=== PATIENT | female | born 1990 | race Caucasian/White ===

== ENCOUNTER → 2019-01-08 15:44 | Outpatient (CLI) | payer OTHER, SELFPAY ==
[2019-01-08 16:51] LABS: Add Manual Diff / Slide Review NO; Basophils Absolute Auto 0 /uL (0-100); Basophils Percent Auto 0.4 % (0-2); Eosinophils Absolute Auto 100 /uL (0-450); Hematocrit 41.3 % (36-46); Hemoglobin 13.9 g/dL (12.0-16.0); Lymphocytes Absolute Auto 2000 /uL (1100-4500); Lymphocytes Percent Auto 19.3 % (25-40); Mean Corpuscular HGB Conc 33.7 % (30-36); Mean Corpuscular Hemoglobin 31.2 PG (26-34); Mean Corpuscular Volume 92.5 fL (80-100); Monocytes Absolute Auto 500 /uL (0-900); Monocytes Percent Auto 4.4 % (3-14); Neutrophils Absolute Auto 7700 /uL (1500-7000); Neutrophils Percent Auto 74.9 % (50-75); Platelet Count 230 X10^3/uL (150-400); Red Blood Cell Count 4.47 X10^6/uL (4.0-5.2); Red Cell Distribution Width 13.3 % (11.6-14.8); White Blood Cell Count 10.3 X10^3/uL (4.5-11.0)
[2019-01-08 16:59] LABS: Appearance Urine UA CLEAR; Bilirubin Urine UA NEGATIVE (NEGATIVE); Color Urine UA YELLOW; Glucose Urine UA NEGATIVE (Negative); Ketones Urine UA NEGATIVE (NEGATIVE); Leukocyte Esterase Urine UA NEGATIVE (NEGATIVE); Nitrite Urine UA NEGATIVE (Negative); Occult Blood Urine UA NEGATIVE (Negative); Protein Urine UA NEGATIVE (Negative); Specific Gravity Urine UA <=1.005 (1.000-1.035); Urobilinogen Urine UA 0.2 E.U./dL (0.2); pH Urine UA 6.5 (4.5-8.0)
[2019-01-08 17:41] LABS: Hepatitis B Surface Antigen NEGATIVE s/c (NEGATIVE); Rubella Antibody IgG 10.7 IU/mL (>15)
[2019-01-08 17:58] LABS: HIV 1 and 2 Antibody NEGATIVE (NEGATIVE); Hep C Virus Ab w/Reflex Quant NEGATIVE s/c (NEGATIVE)
[2019-01-10 14:21] LABS: RPR Screen Nonreactive (Nonreactive)
== END ==
PROVIDERS: PCP Family Medicine; Visit Provider Family Medicine
DX: Z34.01 Encounter for supervision of normal first pregnancy, first trimester (principal)
CPT/HCPCS: 36415; 80055; 81003; 86703; 86787; 86803; 86850; 86900; 86901; 87086

== ENCOUNTER → 2019-01-16 09:32 | Outpatient (CLI) | payer OTHER, SELFPAY ==
[2019-01-16 11:47] LABS: HCG Quantitative /Beta subunit 170800 mIU/mL
== END ==
PROVIDERS: PCP Family Medicine; Visit Provider Family Medicine
DX: Z34.81 Encounter for supervision of other normal pregnancy, first trimester (principal); Z3A.08 8 weeks gestation of pregnancy
CPT/HCPCS: 36415; 84702

== ENCOUNTER → 2019-01-18 08:14 | Outpatient (CLI) | payer OTHER, SELFPAY ==
[2019-01-18 10:15] LABS: HCG Quantitative /Beta subunit 163030 mIU/mL
== END ==
PROVIDERS: PCP Family Medicine; Visit Provider Family Medicine
DX: Z34.81 Encounter for supervision of other normal pregnancy, first trimester (principal); Z3A.08 8 weeks gestation of pregnancy
CPT/HCPCS: 36415; 84702

== ENCOUNTER 2019-01-22 11:03 | Day surgery (SDC) | payer OTHER, SELFPAY ==
[2019-01-21 08:15] VITALS: BMI 21.4
[2019-01-22] VITALS (9 sets, daily range): BP systolic 99–135; BP diastolic 52–85; PULSE 61–108; RESP 12–16; TEMP 36.4–36.8; O2SAT 95–100; BMI 21.4
--- NOTE | 2019-01-22 | PATH_ITS ---
[facility] Accession Number: [id number] . 01 Material submitted: . PRODUCTS OF CONCEPTION . 01 Clinical history: . BELIEVES MOST TISSUE IS IN THE #2 SPECIMEN . 02 Diagnosis: Products of Conception: Products of conception identified. Chromosomal analysis pending; results will be reported as an addendum. MRV/01/24/2019 . 02 Electronically signed: . Amelie Pablo MD, Pathologist NPI- [id number] . 01 Gross description: . Received in formalin, labeled products of conception, tissue sent for chromosomal analysis, are multiple fragments of magaña-felder and red-brown spongy and membranous tissue (9.5 x 3.5 x 2.2 cm in aggregate). No tissue is identified. 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 Note: Per the requisition, this is a split sample. ([id number]) /MRV . 02 Pathologist provided ICD-10: O02.1 . 02 CPT . 913085 Performed at: 01 [facility] [address], [place], [place] [id number] MD Paddy Carrasquillo MD Phone: [phone] Performed at: 02 [facility] [address] [place], [place] [id number] MD Hannah Chamorro MD Phone: [phone]
--- NOTE | 2019-01-22 11:06 | DI.US.S_ITS ---
PROCEDURE: US OB <= 14 WEEKS FETUS INDICATIONS: Miscarriage/Check prior to D C sched 01/22 @ 1345 OUTSIDE/PRIOR DATING DATA: Last menstrual period (LMP): 11/20/18. LMP-based estimated date of delivery (JANUARY): 08/27/19. First dating scan (date and location): 01/22/19, this study. Estimated date of delivery (JANUARY) from first dating scan: 09/02/19, plus or -5 days. TECHNIQUE: Real-time scanning was performed of the fetus and maternal pelvic organs, with image documentation. Endovaginal scanning was also performed to better visualize the fetus and maternal ovaries. COMPARISON: None. FINDINGS: Embryo: [place]-rump length of 1.7 cm correlates with a gestational age of 8 weeks 1 day but there is no heart rate observed. Measurement variability in dating: +/- 4 weeks by LMP, +/- 7 days by mean sac diameter (use before 6 weeks gestation if crown-rump length not able to be measured), +/- 5 days by crown-rump length (up to 8 weeks 6 days gestation), +/- 7 days by crown-rump length (up to 13 weeks 6 days gestation). Maternal organs: Ovaries are normal in appearance except for identification of a 2.6 cm right ovarian cyst. Limited images through the kidneys demonstrate no hydronephrosis. IMPRESSION: demise. 8 week 1 day gestational age by crown-rump length. No cardiac activity. 2.6 cm right ovarian cyst incidentally noted. Dictated by: Luis Antonio Ko M.D. on 01/22/2019 at 12:52 Approved by: Luis Antonio Ko M.D. on 01/22/2019 at 12:54
[2019-01-22] MEDS: LACTATED RINGERS 1,000 ML 42 ML IV (12:54)
--- NOTE | 2019-01-22 13:32 | PM.PREOP ---
Pre-operative Note Interval Note History & Physical reviewed/Exam performed by Physician: Yes Changes to H&P: No
--- NOTE | 2019-01-22 13:33 | PM.HP.1 ---
History of Present Illness Date Patient Seen: 01/22/19 Time Patient Seen: 13:33 Chief complaint: [id number] Narrative: Patient is a 28-year-old 1 para 0 with a missed at 8 weeks Patient History Medical History (Updated 01/22/19 @ 13:35 by Iwona Ledesma MD) Asthma (Acute) Kidney infection (Acute ~2003) Migraines (Acute) Family History Brother Age: 22 Lactose intolerance Grandfather Cancer Grandmother Age: 69 Diabetes mellitus Heart disease Hypertension Lupus Fibromyalgia Mother Age: 51 Hypertension Anemia IBS (irritable bowel syndrome) Lupus Grandmother Age: 93 Hypertension Sister Age: 8 Lactose intolerance Social History household members: spouse Smoking Status: Never smoker alcohol intake: current Family & Social History Social History: household members spouse Tobacco & Substance use: Smoking Status Never smoker alcohol intake current Substance Use Type does not use Meds Home Medications Medication Instructions Recorded Confirmed Type 1 tab PO DAILY 01/08/19 01/08/19 History vitamin,calcium,uxipxhfi-xqzp-bomxy acid tablet Allergies Allergy/AdvReac Type Severity Reaction Status Date / Time No Known Drug Allergies Allergy Unverified 01/08/19 15:48 Exam Vital Signs (past 8 hours): - 01/22/19 12:42 Temperature 98.3 F Pulse Rate 66 Respiratory Rate 16 Blood Pressure 114/76 Pulse Oximetry 100 Oxygen Delivery Method Room Air Narrative Exam Narrative: HEENT: No thyromegaly, no anterior cervical or supraclavicular lymphadenopathy. Lungs:Clear to auscultation bilaterally, no wheezes. Cardiovascular: Regular rate and rhythm, no murmurs, rubs, or gallops Abdomen: No scars. No hepatosplenomegaly. No masses palpable. External genitalia: Normal Vagina: Normal Cervix: Normal Bimanual exam: 8 Week size uterus. Mobile. Rectal: No masses Assessment & Plan (1) Missed with demise before 20 completed weeks of gestation: Current visit: Yes Status: Acute Assessment & Plan narrative: Assessment: 28-year-old 1 para 0 with a missed at 8 weeks Plan: Suction D&C The risks, benefits, and alternatives to the procedure were explained to the patient. The risks including bleeding, infection, and uterine perforation. She understands these risks and agrees to proceed. A full PAR-Q was held and consent form was signed.
--- NOTE | 2019-01-22 13:37 | P.HP_ITS ---
History of Present Illness Date Patient Seen: 01/22/19 Time Patient Seen: 13:33 Chief complaint: [id number] Narrative: Patient is a 28-year-old 1 para 0 with a missed at 8 weeks Patient History Medical History (Updated 01/22/19 @ 13:35 by Iwona Ledesma MD) Asthma (Acute) Kidney infection (Acute ~2003) Migraines (Acute) Family History Brother Age: 22 Lactose intolerance Grandfather Cancer Grandmother Age: 69 Diabetes mellitus Heart disease Hypertension Lupus Fibromyalgia Mother Age: 51 Hypertension Anemia IBS (irritable bowel syndrome) Lupus Grandmother Age: 93 Hypertension Sister Age: 8 Lactose intolerance Social History household members: spouse Smoking Status: Never smoker alcohol intake: current Family & Social History Social History: household members spouse Tobacco & Substance use: Smoking Status Never smoker alcohol intake current Substance Use Type does not use Meds Home Medications Medication Instructions Recorded Confirmed Type 1 tab PO DAILY 01/08/19 01/08/19 History vitamin,calcium,hqrtttcd-aneb-elwof acid tablet Allergies Allergy/AdvReac Type Severity Reaction Status Date / Time No Known Drug Allergies Allergy Unverified 01/08/19 15:48 Exam Vital Signs (past 8 hours): - 01/22/19 12:42 Temperature 98.3 F Pulse Rate 66 Respiratory Rate 16 Blood Pressure 114/76 Pulse Oximetry 100 Oxygen Delivery Method Room Air Narrative Exam Narrative: HEENT: No thyromegaly, no anterior cervical or supraclavicular lymphadenopathy. Lungs:Clear to auscultation bilaterally, no wheezes. Cardiovascular: Regular rate and rhythm, no murmurs, rubs, or gallops Abdomen: No scars. No hepatosplenomegaly. No masses palpable. External genitalia: Normal Vagina: Normal Cervix: Normal Bimanual exam: 8 Week size uterus. Mobile. Rectal: No masses Assessment & Plan (1) Missed with demise before 20 completed weeks of gestation: Current visit: Yes Status: Acute Assessment & Plan narrative: Assessment: 28-year-old 1 para 0 with a missed at 8 weeks Plan: Suction D&C The risks, benefits, and alternatives to the procedure were explained to the patient. The risks including bleeding, infection, and uterine perforation. She understands these risks and agrees to proceed. A full PAR-Q was held and consent form was signed.
--- NOTE | 2019-01-22 14:26 | SUR.OPER ---
Lithotomy on padded OR bed, head on pillow, arms secured on padded arm boards at <90 degrees abduction. Legs secured in padded yellow fins stirrups.
[2019-01-22] MEDS: OXYCODONE/ACETAMINOPHEN 5/325 TABLET 1 TAB PO ×2 (14:56→15:15)
--- NOTE | 2019-01-23 06:29 | PM.GYNOP.1 ---
Operative Date/Time/Diagnoses Date of procedure: 01/23/19 Time of procedure: 14:20 Pre-op diagnosis: Missed at 8 weeks Post-op diagnosis: same Procedure: Procedures Operation Date: 01/22/19 13:45 Actual Procedures Side Surgeon p Dilation and Curettage-Suction Not Applicable Iwona Ledesma MD Indications: Missed at 8 weeks Surgeon: Iwona Ledesma Anesthesia Type: General (LMA) Operative Notes Findings: 8 week size anteverted uterus Closure Type: not applicable Specimen(s): uterine contents (Products of conception to pathology, a small piece of tissue in LR sent for cytogenetics) Estimated blood loss (mL): 100 Procedure in detail: After informed consent was obtained, the patient was taken to the operating room where she was placed in the dorsal supine position. After adequate LMA general anesthesia was achieved, she was placed in the dorsal lithotomy position, and prepped and draped in the usual sterile fashion. A bimanual exam was performed which revealed in an 8 week size anteverted uterus. A bivalve speculum was placed into the vagina and the anterior lip of the cervix was grasped with a single-tooth tenaculum. The cervical os was sequentially dilated to the 8. Hegar dilator. The # 8 Curved plastic curette passed easily into the endometrial cavity. Several passes with suction revealed a large amount of tissue. Polyp forceps were used to grasp portions of the tissue to send for genetic testing. Gentle sharp curettage was performed yielding a large amount of tissue. Several more passes with suction revealed tissue on the 1st few passes and then blood only on the last 2 passes. The plastic curette was removed from the uterus. A single-tooth tenaculum was removed from the anterior lip of the cervix. There was a small tear on the anterior lip of the cervix. A pscnje-eq-swwbj suture with 2 0 chromic was placed for hemostasis. The bivalve speculum was removed from the vagina. A bimanual exam was performed which revealed a well contracted 8 week size uterus. Sponge, lap, and instrument counts were correct x2. The patient tolerated the procedure well, and was taken to PACU in stable condition. Complications: none Post-operative Condition: stable Disposition: PACU Plan for aftercare: Home after recovery
== END 2019-01-22 15:48 | disposition home or self-care (01) ==
PROVIDERS: PCP Family Medicine; Visit Provider Obstetrics & Gynecology
PROC: (CPT 58120; principal; 2019-01-22 13:45)
DX: O02.1 Missed abortion (principal); Z3A.08 8 weeks gestation of pregnancy; J45.909 Unspecified asthma, uncomplicated
CPT/HCPCS: 59820; 76801; J1100; J1885; J2405; J2704

== ENCOUNTER → 2019-01-28 14:12 | Outpatient (CLI) | payer OTHER, SELFPAY ==
[2019-01-28 14:37] LABS: Add Manual Diff / Slide Review NO; Basophils Absolute Auto 100 /uL (0-100); Basophils Percent Auto 1.4 % (0-2); Eosinophils Absolute Auto 300 /uL (0-450); Eosinophils Percent Auto 4.1 % (2-4); Hematocrit 42.3 % (36-46); Hemoglobin 14.1 g/dL (12.0-16.0); Lymphocytes Absolute Auto 1800 /uL (1100-4500); Lymphocytes Percent Auto 26.6 % (25-40); Mean Corpuscular HGB Conc 33.3 % (30-36); Mean Corpuscular Hemoglobin 31.2 PG (26-34); Mean Corpuscular Volume 93.7 fL (80-100); Monocytes Absolute Auto 400 /uL (0-900); Monocytes Percent Auto 5.5 % (3-14); Neutrophils Absolute Auto 4100 /uL (1500-7000); Neutrophils Percent Auto 62.4 % (50-75); Platelet Count 247 X10^3/uL (150-400); Red Blood Cell Count 4.52 X10^6/uL (4.0-5.2); Red Cell Distribution Width 14.1 % (11.6-14.8); White Blood Cell Count 6.6 X10^3/uL (4.5-11.0)
== END ==
PROVIDERS: PCP Family Medicine
DX: O02.1 Missed abortion (principal)
CPT/HCPCS: 36415; 85025

== ENCOUNTER → 2019-07-12 08:53 | Outpatient (CLI) | payer OTHER, SELFPAY ==
[2019-07-12 11:37] LABS: HCG Quantitative /Beta subunit 17584 mIU/mL
== END ==
PROVIDERS: PCP Family Medicine; Visit Provider Obstetrics & Gynecology
DX: Z32.01 Encounter for pregnancy test, result positive (principal); Z87.59 Personal history of other complications of pregnancy, childbirth and the puerperium
CPT/HCPCS: 36415; 84702

== ENCOUNTER → 2019-07-14 08:00 | Outpatient (CLI) | payer OTHER, SELFPAY ==
[2019-07-14 10:06] LABS: HCG Quantitative /Beta subunit 26739 mIU/mL
== END ==
PROVIDERS: PCP Family Medicine; Visit Provider Obstetrics & Gynecology
DX: Z32.01 Encounter for pregnancy test, result positive (principal); Z87.59 Personal history of other complications of pregnancy, childbirth and the puerperium
CPT/HCPCS: 36415; 84702

== ENCOUNTER → 2019-08-05 09:58 | Outpatient (CLI) | payer OTHER, SELFPAY ==
[2019-08-05 14:34] LABS: Urine Chlamydia NOT DETECTED
[2019-08-05 14:35] LABS: Urine N gonorrhoeae NOT DETECTED
== END ==
PROVIDERS: PCP Family Medicine; Visit Provider Obstetrics & Gynecology
DX: Z34.81 Encounter for supervision of other normal pregnancy, first trimester (principal)
CPT/HCPCS: 87491; 87591

== ENCOUNTER → 2019-09-02 09:24 | Outpatient (CLI) | payer OTHER, SELFPAY ==
[2019-09-02 09:45] LABS: Specimen Label NATERA
[2019-09-02 10:38] LABS: Appearance Urine UA CLEAR; Bilirubin Urine UA NEGATIVE (NEGATIVE); Color Urine UA YELLOW; Glucose Urine UA NEGATIVE (Negative); Ketones Urine UA NEGATIVE (NEGATIVE); Leukocyte Esterase Urine UA NEGATIVE (NEGATIVE); Nitrite Urine UA NEGATIVE (Negative); Occult Blood Urine UA NEGATIVE (Negative); Protein Urine UA NEGATIVE (Negative); Specific Gravity Urine UA <=1.005 (1.000-1.035); Urobilinogen Urine UA 0.2 E.U./dL (0.2)
[2019-09-02 10:41] LABS: pH Urine UA 6.5 (4.5-8.0)
[2019-09-02 10:49] LABS: Add Manual Diff / Slide Review NO; Basophils Absolute Auto 0 /uL (0-100); Basophils Percent Auto 0.3 % (0-2); Eosinophils Absolute Auto 100 /uL (0-450); Eosinophils Percent Auto 1.2 % (2-4); Hematocrit 39.5 % (36-46); Hemoglobin 13.9 g/dL (12.0-16.0); Lymphocytes Absolute Auto 1300 /uL (1100-4500); Lymphocytes Percent Auto 15.3 % (25-40); Mean Corpuscular HGB Conc 35.2 % (30-36); Mean Corpuscular Hemoglobin 32.4 PG (26-34); Mean Corpuscular Volume 92.1 fL (80-100); Monocytes Absolute Auto 300 /uL (0-900); Monocytes Percent Auto 3.7 % (3-14); Neutrophils Absolute Auto 6800 /uL (1500-7000); Neutrophils Percent Auto 79.5 % (50-75); Platelet Count 192 X10^3/uL (150-400); Red Blood Cell Count 4.28 X10^6/uL (4.0-5.2); Red Cell Distribution Width 13.2 % (11.6-14.8); White Blood Cell Count 8.6 X10^3/uL (4.5-11.0)
[2019-09-02 11:37] LABS: Hepatitis B Surface Antigen NEGATIVE s/c (NEGATIVE); Rubella Antibody IgG 10.3 IU/mL (>15)
[2019-09-02 11:56] LABS: HIV 1 & 2 Ab/Ag 4th Gen Combo NEGATIVE (NEGATIVE); Hep C Virus Ab w/Reflex Quant NEGATIVE s/c (NEGATIVE)
[2019-09-04 19:37] LABS: RPR Screen Nonreactive (Nonreactive)
== END ==
PROVIDERS: Family Provider Obstetrics & Gynecology; PCP Obstetrics & Gynecology; Visit Provider Physical Medicine & Rehabilitation
DX: Z34.81 Encounter for supervision of other normal pregnancy, first trimester (principal)
CPT/HCPCS: 36415; 80055; 81003; 86787; 86803; 86850; 86900; 86901; 87086; 87147; 87389

== ENCOUNTER → 2019-10-08 09:48 | Outpatient (CLI) | payer OTHER, SELFPAY ==
[2019-10-13 16:35] LABS: AFP, Serum 84.2 ng/mL; Calc Gestational Age 17.6; Est Date Determined by ULTRASOUND; Maternal Weight 133 lbs; Number of Fetuses 1; Prev Pregnancies Down Syndrome NO
== END ==
PROVIDERS: Family Provider Obstetrics & Gynecology; PCP Obstetrics & Gynecology; Visit Provider Obstetrics & Gynecology
DX: Z34.92 Encounter for supervision of normal pregnancy, unspecified, second trimester (principal); Z3A.17 17 weeks gestation of pregnancy
CPT/HCPCS: 36415; 82105

== ENCOUNTER → 2019-10-24 08:50 | Outpatient (CLI) | payer OTHER, SELFPAY ==
--- NOTE | 2019-10-24 08:52 | DI.US.S_ITS ---
PROCEDURE: US OB >= 14 WEEKS FETUS INDICATIONS: ANATOMY OUTSIDE/PRIOR DATING DATA: Last menstrual period (LMP): 06/06/19. LMP-based estimated date of delivery (AJNUARY): 03/12/20. First dating scan (date and location): 08/05/19. Estimated date of delivery (JANUARY) from first dating scan: 03/10/20. TECHNIQUE: Real-time scanning was performed of the fetus, with image documentation and biometric measurements. COMPARISON: [facility], , OB >= 14 WEEKS FETUS, 09/02/2019, 9:06. FINDINGS: General: A single living intrauterine gestation is present. Presentation: Vertex. Placental position is right fundal, without previa. Amniotic fluid index: 16.9 cm, normal range is 5-24 cm. heart rate: 143 beats per minute. Maternal cervical canal: 3.4 cm long. Normal lower limit is 2.5 cm. biometrics: Biparietal diameter: 21 weeks 1 day Head circumference: 20 weeks 6 days Abdominal circumference: 21 weeks 1 day Femur length: 20 weeks 0 days Estimated gestational age from initial scan: 20 weeks 2 days Composite gestational age from present scan: 20 weeks 6 days Estimated weight and percentile: 373 g; 70 and percentile Measurement variability for biometric dating: +/- 7 days from 14 weeks to 15 weeks 6 days gestation, +/- 10 days from 16 weeks to 21 weeks 6 days gestation, +/- 2 weeks from 22 weeks to 27 weeks 6 days gestation, +/- 3 weeks for 28 weeks gestation or later. weight reference: 4500 g or EFW >90/95% is considered macrosomia or large for gestational age. EFW <10% is small for gestational age. EFW 5% or less is considered intra-uterine growth restriction. Anatomic survey: Neuro: Ventricles are non-dilated at less than 10 mm. Cisterna magna is normal at 3-11 mm. Cerebellum is normal in size and morphology. Nuchal skin fold: Normal at less than 6 mm between 14-21 weeks gestational age. Face: Nose and lips, facial profile are normal. Spine: No evidence for spina bifida. Heart: 4-chambered heart is present, with normal ventricular outflow tracts. Diaphragm: Diaphragm is intact. Stomach: Left-sided stomach is present. Kidneys: No hydronephrosis. Normal is less than 5 mm in 2nd trimester, less than 7 mm in 3rd trimester. Cord: 3-vessel cord has orthotopic insertion. Bladder: Normal in size. Extremities: All 4 extremities identified. IMPRESSION: 1. Single living IUP redemonstrated and interval growth is normal. 2. Normal anatomic survey. Dictated by: Que Fierro [facility] Interpreted: Luis Antonio Ko MD on 10/24/2019 at 16:04 Approved by: Luis Antonio Ko M.D. on 10/24/2019 at 19:46
== END ==
PROVIDERS: Family Provider Obstetrics & Gynecology; PCP Obstetrics & Gynecology; Visit Provider Obstetrics & Gynecology
DX: Z34.02 Encounter for supervision of normal first pregnancy, second trimester (principal); Z3A.20 20 weeks gestation of pregnancy
CPT/HCPCS: 76811

== ENCOUNTER → 2019-12-02 09:20 | Outpatient (CLI) | payer OTHER, SELFPAY ==
[2019-12-02 11:42] LABS: Hematocrit 36.6 % (36-46); Hemoglobin 12.9 g/dL (12.0-16.0)
[2019-12-02 12:27] LABS: GTT (PREG) 1 Hour PP 50gm Dose 94 mg/dL (76-139)
== END ==
PROVIDERS: Family Provider Obstetrics & Gynecology; PCP Family Medicine; Referring Provider Obstetrics & Gynecology; Visit Provider Obstetrics & Gynecology
DX: Z34.90 Encounter for supervision of normal pregnancy, unspecified, unspecified trimester (principal)
CPT/HCPCS: 36415; 82950; 85014; 85018

== ENCOUNTER 2019-12-30 09:39 | Outpatient (CLI) | payer OTHER, SELFPAY ==
--- NOTE | 2019-12-30 10:24 | PM.OBTRLD ---
Visit Information Visit Information Date of evaluation: 12/30/19 Primary OB Provider: Ingrid Benitez Reason for Evaluation: Yes non-stress test Comments/Additional reasons for admission: Patient is a 29yo @29+4 presenting for NST for decreased movement and FHT measuring 105 transiently in the office. Patient reports improved movement, denies ctx, VB, LOF. Vital Signs Vital Signs: 119/75, HR 65 PFSH Medical History Anxiety (Acute) Asthma (Acute) Eczema (Acute) Kidney infection (Acute ~2003) Migraines (Acute) Seasonal allergies (Acute) Surgical History History of dilatation and curettage (Acute) Family History Brother Age: 23 Lactose intolerance Grandfather Cancer Grandmother Age: 70 Diabetes mellitus Heart disease Hypertension Lupus Fibromyalgia Mother Age: 52 Hypertension Anemia IBS (irritable bowel syndrome) Lupus Grandmother Age: 94 Hypertension Sister Age: 9 Lactose intolerance Social History marital status: household members: spouse pets and animals: Yes (dogs) education level: college current occupational exposures/hazards: No Smoking Status: Never smoker alcohol intake: current Review of Systems Constitutional Constitutional: Reports system reviewed and no additional complaints, except as documented Cardiovascular Cardiovascular: Reports system reviewed; no additional complaints, except as documented Respiratory Respiratory: Reports system reviewed and no additional complaints, except as documented Gastrointestinal Gastrointestinal: Reports system reviewed and no additional complaints, except as documented Genitourinary Genitourinary: Reports as per HPI Evaluation Evaluation Baseline heart rate: 125 Variability: Moderate (11-25) monitor accelerations: Present (10x10) Category of Tracing: I Diagnosis, Plan/Disposition Plan/Disposition Plan: Patient feeling improved per center staff, reassuring NST for 29 weeks. Discharged with precautions. OB Disposition: home
== END 2019-12-30 10:30 | disposition home or self-care (01) ==
LOC: OB 12-31 16:55
PROVIDERS: Family Provider Obstetrics & Gynecology; PCP Family Medicine; Referring Provider Obstetrics & Gynecology; Visit Provider Obstetrics & Gynecology
DX: O36.8130 Decreased fetal movements, third trimester, not applicable or unspecified (principal); Z3A.29 29 weeks gestation of pregnancy
CPT/HCPCS: 59025; G0378; G0379

== ENCOUNTER → 2020-02-11 11:04 | Outpatient (CLI) | payer OTHER, SELFPAY ==
[2020-02-12 12:58] LABS: Strep Grp B PCR NEG for Grp B Strep
== END ==
PROVIDERS: Family Provider Obstetrics & Gynecology; PCP Family Medicine; Visit Provider Obstetrics & Gynecology
DX: Z34.03 Encounter for supervision of normal first pregnancy, third trimester (principal); Z3A.35 35 weeks gestation of pregnancy
CPT/HCPCS: 87653

== ENCOUNTER → 2020-02-25 15:19 | Outpatient (CLI) | payer OTHER, SELFPAY ==
[2020-02-25 16:29] LABS: Add Manual Diff / Slide Review NO; Basophils Absolute Auto 0 /uL (0-100); Basophils Percent Auto 0.4 % (0-2); Eosinophils Absolute Auto 100 /uL (0-450); Eosinophils Percent Auto 0.4 % (2-4); Hematocrit 40.9 % (36-46); Lymphocytes Absolute Auto 1700 /uL (1100-4500); Lymphocytes Percent Auto 15.1 % (25-40); Mean Corpuscular HGB Conc 34.3 % (30-36); Mean Corpuscular Hemoglobin 32.2 PG (26-34); Mean Corpuscular Volume 93.7 fL (80-100); Monocytes Absolute Auto 500 /uL (0-900); Monocytes Percent Auto 4.4 % (3-14); Neutrophils Absolute Auto 9200 /uL (1500-7000); Neutrophils Percent Auto 79.7 % (50-75); Platelet Count 172 X10^3/uL (150-400); Red Blood Cell Count 4.36 X10^6/uL (4.0-5.2); Red Cell Distribution Width 13.4 % (11.6-14.8); White Blood Cell Count 11.5 X10^3/uL (4.5-11.0)
[2020-02-25 16:33] LABS: Aspartate Aminotransferase 34 IU/L (14-36); BUN Creatinine Ratio 12.6 (6-22); Blood Urea Nitrogen 11 mg/dL (7-17); Estimated Glomerular Filt Rate > 60.0 mL/min (>60); Uric Acid 5.5 mg/dL (2.5-6.2)
[2020-02-25 17:12] LABS: Creatinine Urine Random 43.9 mg/dL; Protein (Total) Urine Random 12 mg/dL (0-12); Protein Creatinine Ratio Urine 0.27 GRAM/24H
== END ==
PROVIDERS: Family Provider Obstetrics & Gynecology; PCP Family Medicine; Referring Provider Obstetrics & Gynecology; Visit Provider Obstetrics & Gynecology
DX: Z34.90 Encounter for supervision of normal pregnancy, unspecified, unspecified trimester (principal)
CPT/HCPCS: 36415; 82570; 84156; 84450; 84550; 85025

== ENCOUNTER 2020-02-27 10:33 | Inpatient (IN) | payer OTHER, SELFPAY ==
--- NOTE | 2020-02-27 10:47 | DI.US.S_ITS ---
PROCEDURE: US OB BIOPHYSICAL PROFILE INDICATIONS: GESTATIONAL PRE-ECLAMPSIA OUTSIDE/PRIOR DATING DATA: Last menstrual period (LMP): 06/06/19. LMP-based estimated date of delivery (JANUARY): 03/12/20. First dating scan (date and location): 08/05/19. Estimated date of delivery (JANUARY) from first dating scan: 03/10/20. TECHNIQUE: Real-time scanning was performed of the fetus, with image documentation and biometric measurements. Biophysical profile was also obtained. Endovaginal scanning: Deferred COMPARISON: [facility], US, OB >= 14 WEEKS FETUS, 02/18/2020, 11:38. FINDINGS: General: A single living intrauterine gestation is present. Presentation: Vertex. Placenta: Placental position is fundal, without previa. Amniotic fluid index: 7.2 cm, normal range is 5-24 cm. heart rate: 127 beats per minute. Maternal cervical canal: Not seen. Biophysical profile: Tone: 2 points. Movement: 2 points. Respiration: 2 points. Largest pocket of fluid: 2 points. IMPRESSION: 1. Single living intrauterine in vertex presentation. 2. Normal biophysical profile score of 8 out of 8. Dictated by: Meghan Vergara M.D. on 02/27/2020 at 12:45 Approved by: Meghan Vergara M.D. on 02/27/2020 at 12:47
[2020-02-27 11:26] LABS: Add Manual Diff / Slide Review NO; Basophils Absolute Auto 100 /uL (0-100); Basophils Percent Auto 1.1 % (0-2); Eosinophils Absolute Auto 100 /uL (0-450); Eosinophils Percent Auto 0.5 % (2-4); Hematocrit 41.2 % (36-46); Hemoglobin 14.3 g/dL (12.0-16.0); Lymphocytes Absolute Auto 1600 /uL (1100-4500); Lymphocytes Percent Auto 15.1 % (25-40); Mean Corpuscular HGB Conc 34.6 % (30-36); Mean Corpuscular Hemoglobin 32.3 PG (26-34); Mean Corpuscular Volume 93.5 fL (80-100); Monocytes Absolute Auto 500 /uL (0-900); Monocytes Percent Auto 4.5 % (3-14); Neutrophils Absolute Auto 8200 /uL (1500-7000); Neutrophils Percent Auto 78.8 % (50-75); Platelet Count 165 X10^3/uL (150-400); Red Blood Cell Count 4.41 X10^6/uL (4.0-5.2); Red Cell Distribution Width 13.5 % (11.6-14.8); White Blood Cell Count 10.5 X10^3/uL (4.5-11.0)
[2020-02-27 11:43] LABS: Aspartate Aminotransferase 33 IU/L (14-36); BUN Creatinine Ratio 14.3 (6-22); Blood Urea Nitrogen 11 mg/dL (7-17); Estimated Glomerular Filt Rate > 60.0 mL/min (>60)
[2020-02-27 14:09] LABS: Creatinine Urine Random 18.4 mg/dL; Protein (Total) Urine Random 14 mg/dL (0-12); Protein Creatinine Ratio Urine 0.76 GRAM/24H
--- NOTE | 2020-02-27 15:29 | PM.OBHP.1 ---
OB HPI Date/Time Date of admission: 02/27/20 Date Patient Seen: 02/27/20 Time Patient Seen: 15:29 History of Present Condition Chief complaint: /NST : 2 Para: 1 Estimated Date of Delivery: 03/12/20 Narrative: Cailin Briones is a 29 year old @38+0 presenting induction of labor due to preeclampsia without severe features. The patient developed new onset hypertension earlier this week, and after meeting diagnostic criteria for gestational hypertension, preeclampsia labs were repeated and she was found to have proteinuria, increased signficiantly in 2 days. She reports feeling well with no ARELLANO, visual changes, SOB, chest pain, RUQ pain, decreased movement, VB, or LOF. She is having irregular contractions. The patient's has been otherwise uncomplicated, with no history of elevated blood pressures during or prior to . 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 Indications Indication for induction OB: medical complication History of Present care: good care Dating criteria: LMP confirmed by 1st trimester US Ultrasounds: normal mid trimester US Obstetrical complications: preeclampsia Preadmission Labs Blood type: O (+) positive -: Antibody screen: negative, GBS status: negative, HBsAG: negative, HIV: negative and RPR/VDLR: negative -: Rubella: not immune and Varicella: immune 1 hr GTT: 94 Prior (ies) History: 12/2018: 8 week SAB, D&C Evaluation Evaluation Baseline heart rate: 130 Variability: Moderate (11-25) monitor accelerations: Present monitor decelerations: Absent Category of Tracing: I Cervical dilation (cm): 1 Cervical effacement (%): 50 station: -3 Laboratory results: Laboratory Tests 02/27/20 02/27/20 02/27/20 11:17 11:17 12:30 WBC 10.5 RBC 4.41 Hgb 14.3 Hct 41.2 MCV 93.5 MCH 32.3 MCHC 34.6 RDW 13.5 Plt Count 165 Neut % (Auto) 78.8 H Lymph % (Auto) 15.1 L [place] % (Auto) 4.5 Eos % (Auto) 0.5 L Baso % (Auto) 1.1 Neut # (Auto) 8200 H Lymph # (Auto) 1600 [place] # (Auto) 500 Eos # (Auto) 100 Baso # (Auto) 100 BUN 11 Creatinine 0.77 Estimated GFR > 60.0 BUN/Creatinine Ratio 14.3 Uric Acid 5.0 AST 33 U Random Total Protein 14 H Urine Creatinine 18.4 Protein/Creatinin Ratio 0.76 Comments: EFW 7# PFSH Medical History Anxiety (Acute) Asthma (Acute) Eczema (Acute) Kidney infection (Acute ~2003) Migraines (Acute) Seasonal allergies (Acute) Surgical History History of dilatation and curettage (Acute) Family History Brother Age: 24 Lactose intolerance Grandfather Cancer Grandmother Age: 71 Diabetes mellitus Heart disease Hypertension Lupus Fibromyalgia Mother Age: 53 Hypertension Anemia IBS (irritable bowel syndrome) Lupus Grandmother Age: 95 Hypertension Sister Age: 10 Lactose intolerance Social History marital status: household members: spouse pets and animals: Yes (dogs) education level: college current occupational exposures/hazards: No Smoking Status: Never smoker alcohol intake: current Meds Home Medications and Allergies Home Medications Medication Instructions Recorded Confirmed Type prenat.vits,sheree,hee-cixa-akpvx 1 tab PO DAILY 01/08/19 10/08/19 History ondansetron 4 mg disintegrating 4 mg PO Q6H PRN #20 tab 09/22/19 10/08/19 Rx tablet Allergies Allergy/AdvReac Type Severity Reaction Status Date / Time lactose AdvReac Intermediate Verified 10/08/19 09:01 Review of Systems Constitutional Constitutional: Reports system reviewed and no additional complaints, except as documented Eyes Eyes: Reports system reviewed; no additional complaints, except as documented Cardiovascular Cardiovascular: Reports system reviewed; no additional complaints, except as documented Respiratory Respiratory: Reports system reviewed and no additional complaints, except as documented Genitourinary Genitourinary: Reports system reviewed and no additional complaints, except as documented Musculoskeletal Musculoskeletal: Reports system reviewed; no additional complaints, except as documented Neurologic Neurologic: Reports system reviewed and no additional complaints, except as documented Endocrine Endocrine: Reports system reviewed and no additional complaints, except as documented Exam Vital Signs (past 8 hours): 121/60, HR 60, T Const General: cooperative, healthy appearing and comfortable Orientation: alert, awake and oriented x3 Resp Effort & Inspection: normal respiratory effort Auscultation: clear to auscultation bilaterally Cardio Rate: regular rate Rhythm: regular rhythm GI Palpation: soft and No tender External Female Exam: external appearance normal Objective Labs Result Diagrams: 02/27/20 11:17 02/27/20 11:17 Labs: Laboratory Results - last 24 hr 02/27/20 02/27/20 02/27/20 11:17 11:17 12:30 WBC 10.5 RBC 4.41 Hgb 14.3 Hct 41.2 MCV 93.5 MCH 32.3 MCHC 34.6 RDW 13.5 Plt Count 165 Neut % (Auto) 78.8 H Lymph % (Auto) 15.1 L [place] % (Auto) 4.5 Eos % (Auto) 0.5 L Baso % (Auto) 1.1 Neut # (Auto) 8200 H Lymph # (Auto) 1600 [place] # (Auto) 500 Eos # (Auto) 100 Baso # (Auto) 100 BUN 11 Creatinine 0.77 Estimated GFR > 60.0 BUN/Creatinine Ratio 14.3 Uric Acid 5.0 AST 33 U Random Total Protein 14 H Urine Creatinine 18.4 Protein/Creatinin Ratio 0.76 Assessment and Plan Assessment and Plan Assessment and Plan narrative: This patient is admitted with preeclampsia without severe features at term, for which the standard of care is delivery. Maternal and status is otherwise reassuring, and she is for induction of labor with cervidil overnight and picotin in the AM. We discussed the risks of induction at length, including section and intolerance of labor in the setting of placental pathology from HTN. We discussed the risks of deferring induction, including worsening preeclampsia, distress, stroke, and seizure. We also discussed having RT perform covid testing, and that without the patient's spouse being tested and negative, we cannot allow him to accompany the patient to c section. The patient and partner vocalized understanding. We discussed the course of the induction and the ultimate goal of delivery of a healthy baby to a healthy mom, and all questions were answered. The patient and partner were reassured that they can ask questions at any time during this process. - patient to shower and eat light meal prior to cervidil placement - cEFM, toco until intermittent testing while asleep per high risk protocol - T&S pending - Patient and partner considering covid testing.
[2020-02-27] MEDS: DINOPROSTONE VAG (CERVIDIL) 10 MG VAG (18:24)
[2020-02-27 19:18] VITALS: BP 127/78
--- NOTE | 2020-02-28 08:48 | PM.OBPNLAB ---
Date/Time Date Patient Seen: 02/28/20 Time Patient Seen: 08:48 Pain Control Pain control: tolerating well Comments: 129/91 Pelvic Exam Dilation (cm): 2 Effacement (%): 75 station: -2 Amniotic membrane status: Intact Contractions Pitocin rate (mU/min): 3 Contraction frequency (min): 3 Contraction pattern: Regular Contraction intensity: Mild Status status: Category l Heart Rate Baseline: 135 Monitor Accelerations: Present Monitor Decelerations: Absent Monitor Variability: Moderate Assessment and Plan Assessment: induction ongoing Plan: continuous present management Comments: This patient is doing well this AM, with elevated BPs though no severe range, no new PIH symptoms, and reassuring status. She will be started on pitocin per protocol.
[2020-02-28] MEDS: LACTATED RINGERS 1,000 ML 100 ML IV (09:21)
[2020-02-28] MEDS: OXYTOCIN PREMIX 30 UNIT/500 ML PLAST..BAG IV (09:21)
--- NOTE | 2020-02-28 14:47 | PM.OBPNLAB ---
Date/Time Date Patient Seen: 02/28/20 Time Patient Seen: 14:48 Pain Control Pain control: tolerating well Comments: patient reports no increase in pain or pressure levels Pelvic Exam Dilation (cm): 2 Effacement (%): 75 station: -2 Amniotic membrane status: Intact Comments: BPs 111-136/60-96 Contractions Pitocin rate (mU/min): 15 Contraction frequency (min): 3 Contraction pattern: Regular Contraction intensity: Mild Status status: Category l Heart Rate Baseline: 120 Monitor Accelerations: Present Monitor Decelerations: Variable (rare) Monitor Variability: Moderate Assessment and Plan Assessment: induction ongoing Plan: continuous present management Comments: Akhtar balloon placed with 30ccs, patient tolerated placement well. Continue pitocin until this evening. Discussed readdressing status at 6PM, transitioning to cytotec overnight if akhtar still in place.
--- NOTE | 2020-02-28 18:14 | PM.OBPNLAB ---
Date/Time Date Patient Seen: 02/28/20 Time Patient Seen: 18:14 Pain Control Pain control: tolerating well Pelvic Exam Effacement (%): 75 station: -2 Amniotic membrane status: Intact Comments: akhtar bulb firmly in place, placed at 15:45. BPs 110s-130s/60s-90s. No new PIH symptoms. Contractions Contraction frequency (min): 3 Contraction pattern: Regular Contraction intensity: Mild Status status: Category l Heart Rate Baseline: 125 Monitor Accelerations: Present Monitor Decelerations: Absent Monitor Variability: Moderate Comments: 1x late decel, pitocin turned off to transition to cytotec. Assessment and Plan Assessment: induction ongoing Comments: This patient is a 29yo @38+1, HD#2, with preeclampsia without severe features. The patient had a cervidil for 12 hours, has had 10 hours of pitocin, has a akhtar bulb in place, but is not in active labor. Maternal and status are reassuring, and after discussion of options, patient will retain the akhtar bulb and have additional cervical ripening with PO cytotec overnight, 50mcg q4 hrs. This plan was discussed with the patient and her partner at length, including plan to resume pitocin in the AM and AROM when feasible. All questions were answered.
[2020-02-28] MEDS: miSOPROStoL 25 MCG TABLET 50 MCG PO (20:15)
[2020-02-29] MEDS: miSOPROStoL 25 MCG TABLET 50 MCG PO (00:16)
--- NOTE | 2020-02-29 07:09 | P.PCNOB_ITS ---
Events: Pre-Eclampsia Labor & Delivery Delivery date: 02/29/20 Intrapartal events: Acceleration and Deceleration Cervical ripening method: other (cervidil, akhtar bulb, and 2x cytotec) Induction method: per pitocin protocol Delivery monitor: external FHT and external uterine Route of delivery: L&D Laceration Description: Perineal - 2nd Degree Delivery repair: vicryl Estimated blood loss (mL): 200 Anesthesia type: Local Narrative: This patient is a 29yo now P1 s/p IOL for preeclampsia without severe features at 38 weeks gestation. The patient was induced with cervidil, then pitocin and akhtar bulb, and 2x oral cytotec. The patient underwent SROM and expelled the akhtar bulb at 4cm, and underwent within 2 hours. The patient had an uncomplicated vaginal delivery of a healthy baby boy, apgars 8+8, weight 7#2oz. There was no nuchal cord, and the shoulders delivered with ease. The patient underwent delayed cord clamping. She had a second degree perineal laceration which was repaired with 2-0 and 3-0 vicryl in the usual fashion. There were no other intrapartum or immediate complications, and the patient's highest blood pressures remain 140s/90s with no features of severe preeclampsia. [place] Baby Miles: Infant gender: Male Presentation: vertex position: Left Occiput Transverse cord vessel description: 3 Vessels score (1 min): 8 score (5 min): 8 Plan for aftercare: Routine care. Close monitoring of vital signs and repeat PIH labs tomorrow AM.
[2020-02-29] MEDS: PRENATAL VIT,CALC/IRON/FOLIC 1 TABLET 1 TAB PO (08:21)
[2020-02-29] MEDS: IBUPROFEN 600 MG TABLET PO ×3 (08:21→20:28)
[2020-02-29] MEDS: DOCUSATE 100 MG CAPSULE PO ×2 (08:21→20:28)
[2020-02-29] MEDS: DERMOPLAST SPRAY 20% 60 ML 1 SPRAY TOP (10:57)
[2020-02-29] MEDS: ACETAMINOPHEN 325 MG TABLET 650 MG PO ×2 (10:57→16:51)
[2020-03-01 07:06] LABS: Add Manual Diff / Slide Review NO; Basophils Absolute Auto 200 /uL (0-100); Basophils Percent Auto 1.2 % (0-2); Eosinophils Absolute Auto 100 /uL (0-450); Eosinophils Percent Auto 0.7 % (2-4); Hematocrit 36.8 % (36-46); Hemoglobin 12.6 g/dL (12.0-16.0); Lymphocytes Absolute Auto 2100 /uL (1100-4500); Lymphocytes Percent Auto 16.6 % (25-40); Mean Corpuscular HGB Conc 34.2 % (30-36); Mean Corpuscular Hemoglobin 32.1 PG (26-34); Monocytes Absolute Auto 600 /uL (0-900); Neutrophils Absolute Auto 9600 /uL (1500-7000); Neutrophils Percent Auto 76.5 % (50-75); Platelet Count 157 X10^3/uL (150-400); Red Blood Cell Count 3.92 X10^6/uL (4.0-5.2); Red Cell Distribution Width 13.5 % (11.6-14.8); White Blood Cell Count 12.5 X10^3/uL (4.5-11.0)
[2020-03-01 07:19] LABS: Alanine Aminotransferase 23 IU/L (<35); Albumin 3.4 g/dL (3.5-5.0); Albumin Globulin Ratio 1.1 (1.0-2.8); Alkaline Phosphatase 154 U/L (38-126); Aspartate Aminotransferase 47 IU/L (14-36); BUN Creatinine Ratio 17.7 (6-22); Bilirubin Total 0.2 mg/dL (0.2-1.3); Blood Urea Nitrogen 14 mg/dL (7-17); Calcium 8.9 mg/dL (8.4-10.2); Carbon Dioxide 20 mmol/L (22-32); Chloride 111 mmol/L (98-107); Estimated Glomerular Filt Rate > 60.0 mL/min (>60); Globulin 3.1 g/dL (1.7-4.1); Glucose 80 mg/dL (70-100); HEMOLYSIS < 15 (0-50); Potassium 4.1 mmol/L (3.4-5.1); Sodium 138 mmol/L (137-145); Total Protein 6.5 g/dL (6.3-8.2)
[2020-03-01] MEDS: ACETAMINOPHEN 325 MG TABLET 650 MG PO ×2 (07:59→14:26)
[2020-03-01] MEDS: IBUPROFEN 600 MG TABLET PO ×2 (07:59→14:26)
[2020-03-01] MEDS: DOCUSATE 100 MG CAPSULE PO (07:59)
--- NOTE | 2020-03-01 09:00 | PM.OBPN.1 ---
Subjective - OB Subjective Patient comments: no complaints, pain well controlled, tolerating diet and flatus present baby status: doing well [place] feeding status: exclusively breast feeding Narrative: This patient is a 29yo P1 PPD#1 s/p IOL for preeclampsia without severe features, s/p otherwise uncomplicated vaginal delivery. The patient reports feeling well with no PIH symptoms, moderate lochia, good pain control, ambulating, and no other symptoms this AM. Date Patient Seen: 03/01/20 Time Patient Seen: 09:00 Exam Vital Signs (past 8 hours): 146/93, HR 74 Const General: cooperative, healthy appearing and comfortable GI Palpation: soft and No tender External Female Exam: external appearance normal and exteral laceration (intact, no erythema, no drainage) Other: mild lochia on exam. Skin General: no rashes or lesions noted Extrem General: normal to inspection and no pedal edema Objective Labs Result Diagrams: 03/01/20 06:57 03/01/20 06:57 Labs: Laboratory Results - last 24 hr 03/01/20 03/01/20 06:57 06:57 WBC 12.5 H RBC 3.92 L Hgb 12.6 Hct 36.8 MCV 94.0 MCH 32.1 MCHC 34.2 RDW 13.5 Plt Count 157 Neut % (Auto) 76.5 H Lymph % (Auto) 16.6 L [place] % (Auto) 5.0 Eos % (Auto) 0.7 L Baso % (Auto) 1.2 Neut # (Auto) 9600 H Lymph # (Auto) 2100 [place] # (Auto) 600 Eos # (Auto) 100 Baso # (Auto) 200 H Sodium 138 Potassium 4.1 Chloride 111 H Carbon Dioxide 20 L BUN 14 Creatinine 0.79 Estimated GFR > 60.0 BUN/Creatinine Ratio 17.7 Glucose 80 Calcium 8.9 Total Bilirubin 0.2 AST 47 H ALT 23 Alkaline Phosphatase 154 H Total Protein 6.5 Albumin 3.4 L Globulin 3.1 Albumin/Globulin Ratio 1.1 Assessment & Plan Plan day: 1 plan OB: routine care and discharge home Comments: This patient is a PPD#1 s/p IOL for preeclampsia without severe features. Her labs this AM are stable in the context of tylenol use and blood loss, and her BPs are at her prior baseline with no PIH symptoms or concerning exam findings. We discussed precautions for return, including BPs over 140s/90s on home monitoring, ARELLANO, visual changes, SOB, chest pain, and the usual precautions for return. The patient and her partner vocalized understanding. She will monitor home BPs with her own cuff, and return later this week for a BP check and review of these measurements. Time Spent With Patient Time: Total time spent is greater than 50% in coordination of care (as documented) at patient's floor/unit and/or counseling patient: Time with patient: 15-24 minutes
--- NOTE | 2020-03-01 09:15 | PM.OBDS.1 ---
Discharge Providers Provider Date of admission: 02/27/20 10:33 Discharge Date: 03/01/20 Primary care physician: David Dietrich MD Consults: 03/01/20 07:07 Consult to Manager Activities Routine Comment: Discharge provider: Ingrid Benitez MD Summary Hospital Course Date Patient Seen: 03/01/20 Time Patient Seen: 09:17 Procedures: Vaginal delivery Hospital Course: This patient was admitted at 38 weeks gestation with pre-eclampsia without severe features, and was inducted with cervidil, cytotec, pitocin, and a akhtar balloon. She had an uncomplicated vaginal delivery, and was discharged on PPD#1 with stable blood pressures and no features of severe preeclampsia. Peripartum Data Infant Delivery Method: Natural Vaginal Laceration description: Perineal - 2nd Degree complications: none 1: Gender: Male Disposition of : home Status at Discharge Cognitive/behavioral status at discharge: oriented Functional status at discharge: independent ambulation Overall status at discharge: patient is progressing back to baseline Time Spent with Patient Time attestation: Total time spent providing and/or coordinating discharge services: Time spent: Less than 30 minutes Objective Labs Result Diagrams: 03/01/20 06:57 03/01/20 06:57 Labs: Laboratory Results - last 24 hr 03/01/20 03/01/20 06:57 06:57 WBC 12.5 H RBC 3.92 L Hgb 12.6 Hct 36.8 MCV 94.0 MCH 32.1 MCHC 34.2 RDW 13.5 Plt Count 157 Neut % (Auto) 76.5 H Lymph % (Auto) 16.6 L [place] % (Auto) 5.0 Eos % (Auto) 0.7 L Baso % (Auto) 1.2 Neut # (Auto) 9600 H Lymph # (Auto) 2100 [place] # (Auto) 600 Eos # (Auto) 100 Baso # (Auto) 200 H Sodium 138 Potassium 4.1 Chloride 111 H Carbon Dioxide 20 L BUN 14 Creatinine 0.79 Estimated GFR > 60.0 BUN/Creatinine Ratio 17.7 Glucose 80 Calcium 8.9 Total Bilirubin 0.2 AST 47 H ALT 23 Alkaline Phosphatase 154 H Total Protein 6.5 Albumin 3.4 L Globulin 3.1 Albumin/Globulin Ratio 1.1 Discharge Plan Discharge Plan Patient Disposition: Home Discharge orders & Medications Prescriptions: Continued prenat.vits,sheree,[id number] tablet 1 tab PO DAILY RF: 0 Follow up/Referrals: David Dietrich MD [Primary Care Provider] - [place] [Family Provider] - 3-5 Days (BP check) Diet/Activity/Treatments Diet: Regular Activity: Nothing in the vagina for 6 weeks. Avoid lifting more than 10 lbs for 6 weeks. If you have increasing bleeding, fevers, chills, nausea, vomiting, headaches, visual changes, or any other symptoms or questions, call or come to the ED. Skin/Wound/Dressing Care Report to your healthcare provider any signs of infection, such as:: chills, fever, night sweats, increased pain, unusual drainage and unusual redness Other wound treatment: Keep perineal laceration repair clean and dry using sitz baths and blake bottle. Visit Report/Discharge Packet Instructions: DI for Labor and Delivery, Vaginal Discharge Data Primary Care Provider: David Dietrich
[2020-03-01 10:49] VITALS: BP 146/93; PULSE 74; RESP 16; TEMP 37.1
[2020-03-01] MEDS: MEASLES,MUMPS,RUBELLA VACC/PF 0.5 ML VIAL SUBCUT (14:24)
== END 2020-03-01 14:40 | disposition home or self-care (01) | DRG 807 ==
PROVIDERS: Admitting Provider Obstetrics & Gynecology; Family Provider Obstetrics & Gynecology; PCP Family Medicine; Referring Provider Obstetrics & Gynecology; Visit Provider Obstetrics & Gynecology
DX: O14.04 Mild to moderate pre-eclampsia, complicating childbirth (principal); Z37.0 Single live birth; Z3A.38 38 weeks gestation of pregnancy; O70.1 Second degree perineal laceration during delivery
CPT/HCPCS: 36415; 59025; 59050; 59200; 59400; 76819; 80053; 82570; 84156; 84450; 84550; 85025; 86850; 86900; 86901; 87635; G0379; J2590

== ENCOUNTER → 2020-02-27 15:58 | Outpatient (CLI) | payer OTHER, SELFPAY ==
[2020-02-28 20:29] LABS: COVID19 Sendout Not Detected (Not Detect)
== END ==
PROVIDERS: Family Provider Obstetrics & Gynecology; PCP Family Medicine; Visit Provider Obstetrics & Gynecology
DX: Z34.90 Encounter for supervision of normal pregnancy, unspecified, unspecified trimester (principal)
CPT/HCPCS: 87635